=== PATIENT | male | born 1980 | race Caucasian/White ===

== ENCOUNTER 2016-07-28 13:02 | Emergency (ER) | payer OTHER ==
[2016-07-28] MEDS ORDERED: D50W 25 GM/50 ML VIAL ONE (13:14)
[2016-07-28] MEDS ORDERED: D25W 2.5 GM/10 ML SYR IVP ONE (13:15)
--- NOTE | 2016-07-28 13:16 | EDPHY ---
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 The patient was diagnosed with diabetes 1 year ago. He uses an insulin pump. Patient ate lunch with his partner. Just prior to arrival patient became unresponsive. Patient's partner states he was lowered to the ground and did not sustain any trauma. He had seizure-like activity. EMS arrived and found the patient unresponsive with a glucose of 37. They gave him D50 and his repeat glucose improved to 121. His mental status improved. At this time the patient has no complaints of headache or neck pain. He denies chest pain or shortness of breath. No abdominal pain. The patient complains of tongue discomfort. REVIEW OF SYSTEMS: My complete review of systems is negative except as mentioned in the HPI. ( Hamida Rogel) Past Medical/Surgical History: Includes diabetes Social history: The patient is please officer. He does not smoke. (Hamida Rogel) Physical Exam: Vitals noted GENERAL: Well-appearing, in no acute distress, alert. HEAD: No evidence of trauma. EYES: PERRLA, EOMI, normal to inspection. ENT: Airway intact, no dental, tongue abrasion (no laceration), no malocclusion , no hemotympanum, normal external examination. NECK: The trachea is midline. There is no crepitus. The C-spine is nontender. NEXUS criteria is negative (no midline tenderness, no distracting injury, no altered mental status, no recent alcohol use, no focal neurologic deficit). RESPIRATORY: Clear to auscultation bilaterally, no rales, rhonchi or wheezing. There is no crepitus or palpable rib fractures. CVS: Regular rate and rhythm, no rubs, murmurs, or gallops. ABDOMEN: Soft, nontender, nondistended, normal bowel sounds, no bruising or abrasions. Pelvis: Stable. No tenderness palpation. Hips full range of motion. BACK: Normal to inspection, no spinal tenderness, no spinal step off, no notable bruising or abrasions. SKIN: Normal color, warm, dry. No pallor or diaphoresis. EXTREMITIES: Right upper extremity: Atraumatic. No visible signs of trauma. No tenderness palpation. Neurovascular intact distally. Left upper extremity: Atraumatic. No visible signs of trauma. No tenderness palpation. Neurovascular intact distally. Right lower extremity: Atraumatic. No visible signs of trauma. No tenderness palpation. Neurovascular intact distally. Left lower extremity: Atraumatic. No visible signs of trauma. No tenderness palpation. Neurovascular intact distally. Atraumatic, neurovascularly intact distally in all extremities, pelvis is stable , hips with full range of motion, moves all extremities freely. NEURO/PSYCH: Alert and oriented x 3, GCS 15, normal mood and affect, normal motor sensory exam. (Hamida Rogel) Constitutional: Initial Vital Signs Temperature (C) 37 C 07/28/16 13:05 Heart Rate 101 H 07/28/16 13:05 Respiratory Rate 18 07/28/16 13:05 Blood Pressure 136/95 H 07/28/16 13:05 O2 Sat (%) 95 07/28/16 13:05 O2 Delivery Mode Room Air Allergies/Adverse Reactions: Sulfa (Sulfonamide Antibiotics) [Sulfa(Sulfonamide Antibiotics)] Allergy (Severe , Verified 11/19/11 01:48) Home Medications: Medication Instructions Recorded Miscellaneous Medical Supply [NO 12/19/12 HOME MEDS] Tobramycin 12/20/12 Insulin Pump Cartridge 07/28/16 Medical Decision Making ED Course/Re-evaluation: In the emergency department I discussed possible etiologies with the patient. I answered all his questions. The patient was given food. I reviewed the patient's insulin pump. She per the history the patient gave himself a bolus of 30 units of insulin. Patient states his extremely high dose for him. It is unclear why he gave himself this dose. 1335: The patient is doing well. No new complaints. No focal deficits. 1350: The patient is doing well. No new complaints. Patient is sitting talking with his . Repeat glucose was 74. 15 10: The patient is doing well. No focal deficits. No abdominal pain or chest pain. Patient denies headache or neck pain. Patient will have a repeat glucose 1 hour from his previous blood draw. It is greater than 70 patient will be discharged home. I discussed this plan with the patient. I answered all his questions. 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 (Hamida Rogel) Patient's repeat blood sugar is 146 at 3:40 p.m.. He will be discharged home per Dr. Rogel's instructions. (Emerson Griffin) Differential Diagnosis: My differential includes but is not limited to hypoglycemia, insulin pump malfunction, subarachnoid hemorrhage, subdural hematoma, epidural hematoma, spinal injury (Hamida Rogel) - Data Points Laboratory Results: Laboratory Results 07/28/16 13:30 07/28/16 13:30 07/28/16 07/28/16 07/28/16 15:27 14:16 13:30 WBC RBC Hgb POC Hgb 15.0 gm/dL gm/dL (14.5-17.3) Hct POC Hct 44 % % (40-51) MCV MCH MCHC RDW Plt Count MPV Neut % (Auto) Lymph % (Auto) Long % (Auto) Eos % (Auto) Baso % (Auto) Nucleat RBC Rel Count Absolute Neuts (auto) Absolute Lymphs (auto) Absolute Monos (auto) Absolute Eos (auto) Absolute Basos (auto) Absolute Nucleated RBC Immature Gran % Immature Gran # POC Sodium 145 mEq/L H mEq/L (134-144) Sodium 140 mEq/L mEq/L (134-144) POC Potassium 3.4 mEq/L mEq/L (3.3-5.0) Potassium 4.4 mEq/L mEq/L (3.5-5.2) POC Chloride 107 mEq/L mEq/L (97-110) Chloride 107 mEq/L mEq/L (97-110) Carbon Dioxide 23 mEq/l mEq/l (22-31) Anion Gap 10 mEq/L mEq/L (8-16) POC BUN 8 mg/dL mg/dL (7-23) BUN 10 mg/dL mg/dL (7-23) Creatinine 0.7 mg/dL mg/dL (0.7-1.3) POC Creatinine 0.7 mg/dL mg/dL (0.7-1.3) Estimated GFR > 60 Glucose 74 mg/dL mg/dL (70-100) POC Glucose Pending 70 mg/dL mg/dL (70-100) Calcium 9.1 mg/dL mg/dL (8.5-10.4) Specimen Hemolysis 127 07/28/16 13:30 WBC 9.54 10^3/uL H 10^3/uL (3.80-9.50) RBC 5.33 10^6/uL 10^6/uL (4.40-6.38) Hgb 15.7 g/dL g/dL (13.7-17.5) POC Hgb Hct 45.9 % % (40.0-51.0) POC Hct MCV 86.1 fL fL (81.5-99.8) MCH 29.5 pg pg (27.9-34.1) MCHC 34.2 g/dL g/dL (32.4-36.7) RDW 12.4 % % (11.5-15.2) Plt Count 244 10^3/uL 10^3/uL (150-400) MPV 10.2 fL fL (8.7-11.7) Neut % (Auto) 49.3 % % (39.3-74.2) Lymph % (Auto) 42.0 % % (15.0-45.0) Long % (Auto) 6.0 % % (4.5-13.0) Eos % (Auto) 0.8 % % (0.6-7.6) Baso % (Auto) 0.5 % % (0.3-1.7) Nucleat RBC Rel Count 0.0 % % (0.0-0.2) Absolute Neuts (auto) 4.70 10^3/uL 10^3/uL (1.70-6.50) Absolute Lymphs (auto) 4.01 10^3/uL H 10^3/uL (1.00-3.00) Absolute Monos (auto) 0.57 10^3/uL 10^3/uL (0.30-0.80) Absolute Eos (auto) 0.08 10^3/uL 10^3/uL (0.03-0.40) Absolute Basos (auto) 0.05 10^3/uL 10^3/uL (0.02-0.10) Absolute Nucleated RBC 0.00 10^3/uL 10^3/uL (0-0.01) Immature Gran % 1.4 % H % (0.0-1.1) Immature Gran # 0.13 10^3/uL H 10^3/uL (0.00-0.10) POC Sodium Sodium POC Potassium Potassium POC Chloride Chloride Carbon Dioxide Anion Gap POC BUN BUN Creatinine POC Creatinine Estimated GFR Glucose POC Glucose Calcium Specimen Hemolysis Medications Given: Discontinued Medications Sodium Chloride (Ns) 1,000 mls @ 0 mls/hr IV ONCE ONE PRN Reason: Wide Open Stop: 07/28/16 13:18 Last Admin: 07/28/16 13:42 Dose: 1,000 mls Sodium Chloride (Ns) 1,000 mls @ 0 mls/hr IV ONCE ONE PRN Reason: Wide Open Stop: 07/28/16 14:46 Last Admin: 07/28/16 14:47 Dose: 1,000 mls Point of Care Test Results: 07/28/16 14:16 POC Sodium 145 H POC Potassium 3.4 POC Chloride 107 POC BUN 8 POC Creatinine 0.7 POC Glucose 70 Departure - Departure Disposition: Home, Routine, Self-Care Clinical Impression: Hypoglycemia Syncope Qualifiers: Syncope type: unspecified Qualified Code(s): R55 - Syncope and collapse Condition: Good Instructions: Syncope (ED), Hypoglycemia in a Person with Diabetes (ED) Additional Instructions: Make sure you eat plenty of food today. Watch your insulin dose. Return with lightheadedness, dizziness, headache, neck pain or any other concerns. You need close follow-up with Dr. Rg. Call to make an appointment. Referrals: Alina Rg MD [[facility] [place] Primary Care Provider] - 3-4 days, if not improved
[2016-07-28] MEDS ORDERED: NS 1,000 ML IV ONE ×2 (13:17→14:45)
[2016-07-28 13:42] VITALS: PULSE 101
[2016-07-28 13:51] LABS: % IMMATURE GRANULYOCYTES 1.4 % (0.0-1.1); ABSOLUTE IMMATURE GRANULOCYTES 0.13 10^3/uL (0.00-0.10); ADD DIFF? NO; ADD MORPH? NO; ADD SCAN? NO; ATYPICAL LYMPHOCYTE FLAG 0 (0-99); FRAGMENT RBC FLAG 0 (0-99); HEMATOCRIT 45.9 % (40.0-51.0); HEMOGLOBIN 15.7 g/dL (13.7-17.5); LEFT SHIFT FLG 10 (0-99); LIPEMIA HEMOLYSIS FLAG 90 (0-99); MEAN CELL HEMOGLOBIN 29.5 pg (27.9-34.1); MEAN CELL HEMOGLOBIN CONCENTR. 34.2 g/dL (32.4-36.7); MEAN CELL VOLUME 86.1 fL (81.5-99.8); MEAN PLATELET VOLUME 10.2 fL (8.7-11.7); PLATELET CLUMPS FLAG 0 (0-99); PLATELET COUNT 244 10^3/uL (150-400); RED BLOOD CELL COUNT 5.33 10^6/uL (4.40-6.38); RED CELL DISTRIBUTION WIDTH 12.4 % (11.5-15.2)
[2016-07-28 14:00] LABS: ANION GAP 10 mEq/L (8-16); CALCIUM 9.1 mg/dL (8.5-10.4); CARBON DIOXIDE 23 mEq/l (22-31); CHLORIDE 107 mEq/L (97-110); CREATININE 0.7 mg/dL (0.7-1.3); GLOMERULAR FILTRATION RATE > 60; GLUCOSE 74 mg/dL (70-100); POTASSIUM 4.4 mEq/L (3.5-5.2); SODIUM 140 mEq/L (134-144); SPECIMEN HEMOLYSIS 127
[2016-07-28] MEDS ORDERED: IBUPROFEN 600 MG TAB PO ONE (15:55)
[2016-07-28 15:59] VITALS: BP 138/86; RESP 16; TEMP 97.9; O2SAT 98
== END 2016-07-28 15:53 | disposition home or self-care (01) ==
LOC: EDUNIT#
DX: R55 Syncope and collapse (principal); E11.649 Type 2 diabetes mellitus with hypoglycemia without coma; Z79.4 Long term (current) use of insulin
CPT/HCPCS: 82947-QW